=== PATIENT | female | born 1945 ===

== ENCOUNTER 2023-02-04 17:30 | Inpatient (IN) | payer OTHER, MEDICARE ==
[2023-02-04] MEDS ORDERED: ACETAMINOPHEN 325 MG TABLET (FP) PO ONE (18:16)
[2023-02-04] MEDS ORDERED: busPIRone HCL 5 MG TABLET PO ONE (18:30)
[2023-02-04] MEDS ORDERED: ACETAMINOPHEN 325 MG TABLET (FP) ONE (18:55)
[2023-02-04] MEDS ORDERED: busPIRone HCL 5 MG TABLET ONE (18:56)
[2023-02-04] MEDS ORDERED: SODIUM CHLORIDE 0.9% 1000 ML INFUS.BAG IV ONE (19:13)
[2023-02-04 19:29] LABS: EPI CELLS 3 /uL (0-25.1); HYALINE CASTS 0 /uL (0-3.1); PH,URINE 6.5 (5.0-8.0); URINE APPEARANCE CLEAR; URINE BACTERIA 1 /uL (0-1359); URINE BILIRUBIN NEGATIVE (NEGATIVE); URINE COLOR YELLOW; URINE GLUCOSE (UA) NEGATIVE (NEGATIVE); URINE KETONE TRACE (NEGATIVE); URINE LEUK ESTERASE 2+ (NEGATIVE); URINE NITRITE NEGATIVE (NEGATIVE); URINE PROTEIN TRACE (NEGATIVE); URINE RBC 21 /uL (0-23.9); URINE UROBILINOGEN 0.2 mg/dL (0.2-1.0); URINE WBC 13 /uL (0-25.8)
[2023-02-04 19:40] LABS: BASO % 0.3 % (0-2.0); HEMATOCRIT 38.5 % (32.4-45.2); HEMOGLOBIN 12.7 GM/dL (10.7-15.3); LYMPH % 6.6 % (8-40); MCH 30.2 pg (25.7-33.7); MEAN CELL VOLUME 91.5 fl (80-96); MEAN PLT VOLUME 7.6 fl (7.5-11.1); NEUT % 87.1 % (42.8-82.8); PLATELET COUNT 402 10^3/uL (134-434); RDW 15.2 % (11.6-15.6); WHITE BLOOD COUNT 17.9 K/mm3 (4.0-10.0)
[2023-02-04 20:20] LABS: POTASSIUM 3.5 mmol/L (3.5-5.1)
[2023-02-04 20:23] LABS: ALBUMIN 3.3 g/dl (3.4-5.0); CALCIUM 9.4 mg/dL (8.5-10.1)
[2023-02-04 20:27] LABS: CREATININE 0.6 mg/dL (0.55-1.3)
[2023-02-04 20:28] LABS: BILIRUBIN,TOTAL 1.1 mg/dL (0.2-1); TOT PROT 7.3 g/dl (6.4-8.2)
[2023-02-04] MEDS ORDERED: CEFTRIAXONE 1 GM/50 ML BAG ONE (22:12)
[2023-02-04] MEDS: CEFUROXIME AXETIL 250 MG TABLET PO SCH ×2 (23:07→23:54)
[2023-02-04] MEDS ORDERED: MELATONIN 5 MG TABLETS PO ONE (23:44)
[2023-02-05] MEDS ORDERED: ACETAMINOPHEN 325 MG TABLET (FP) ONE (02:25)
[2023-02-05] MEDS: ACETAMINOPHEN 325 MG TABLET (FP) PO PRN ×2 (02:29→21:48)
[2023-02-05] MEDS ORDERED: busPIRone HCL 5 MG TABLET ONE (05:08)
[2023-02-05] MEDS: busPIRone HCL 5 MG TABLET PO SCH ×2 (05:08→21:48)
[2023-02-05] MEDS ORDERED: PANTOPRAZOLE 20 MG TABLET PO ONE (05:43)
[2023-02-05] MEDS: PANTOPRAZOLE 20 MG TABLET PO SCH (06:11)
[2023-02-05 06:27] LABS: BASO % 0.5 % (0-2.0); EOS % 1.6 % (0-4.5); HEMATOCRIT 32.7 % (32.4-45.2); HEMOGLOBIN 10.8 GM/dL (10.7-15.3); LYMPH % 8.2 % (8-40); MCH 30.4 pg (25.7-33.7); MCHC 32.9 g/dl (32.0-36.0); MEAN CELL VOLUME 92.5 fl (80-96); MEAN PLT VOLUME 7.7 fl (7.5-11.1); MONO % 4.7 % (3.8-10.2); PLATELET COUNT 330 10^3/uL (134-434); RBC 3.54 M/mm3 (3.60-5.2); RDW 14.7 % (11.6-15.6); WHITE BLOOD COUNT 16.1 K/mm3 (4.0-10.0)
[2023-02-05 06:51] LABS: POTASSIUM 3.4 mmol/L (3.5-5.1)
[2023-02-05 06:55] LABS: ALBUMIN 2.7 g/dl (3.4-5.0); CALCIUM 8.7 mg/dL (8.5-10.1); MAGNESIUM 1.9 mg/dL (1.8-2.4)
[2023-02-05 06:56] LABS: BLOOD UREA NITROGEN 21.6 mg/dL (7-18)
[2023-02-05 06:58] LABS: BILIRUBIN,TOTAL 0.8 mg/dL (0.2-1); PHOSPHOROUS 2.7 mg/dL (2.5-4.9)
[2023-02-05 06:59] LABS: CREATININE 0.4 mg/dL (0.55-1.3)
[2023-02-05 07:01] LABS: TOT PROT 6.1 g/dl (6.4-8.2)
[2023-02-05] MEDS: DORZOLAMIDE 2% HCL OPHTHALMIC SOLUTION 10 ML BOTTLE OU SCH ×2 (10:23→21:48)
[2023-02-05] MEDS: CEFUROXIME AXETIL 250 MG TABLET PO SCH ×2 (10:23→22:29)
[2023-02-05] MEDS ORDERED: POTASSIUM CHLORIDE TABS 20 MEQ TABLET.ER (FP) PO ONE ×2 (11:07→11:41)
[2023-02-05] MEDS ORDERED: TAMSULOSIN HCL 0.4 MG CAP ONE (11:41)
[2023-02-05] MEDS ORDERED: ENOXAPARIN NA (PORCINE) 40 MG/0.4 ML DISP.SYRIN SQ ONE (11:41)
[2023-02-05] MEDS: TAMSULOSIN HCL 0.4 MG CAP PO SCH (11:52)
[2023-02-05] MEDS: ENOXAPARIN NA (PORCINE) 40 MG/0.4 ML DISP.SYRIN SQ SCH (11:53)
[2023-02-05] MEDS: LATANOPROST 0.005% OPHTH SOLN 2.5ML BOTTLE OU SCH (21:48)
[2023-02-06] MEDS: busPIRone HCL 5 MG TABLET PO SCH ×3 (05:23→21:34)
[2023-02-06] MEDS: PANTOPRAZOLE 20 MG TABLET PO SCH (06:06)
[2023-02-06] MEDS: TAMSULOSIN HCL 0.4 MG CAP PO SCH (08:24)
[2023-02-06 09:27] LABS: BASO % 0.4 % (0-2.0); EOS % 1.2 % (0-4.5); HEMATOCRIT 30.7 % (32.4-45.2); LYMPH % 7.4 % (8-40); MCHC 32.5 g/dl (32.0-36.0); MEAN CELL VOLUME 92.2 fl (80-96); MEAN PLT VOLUME 7.8 fl (7.5-11.1); MONO % 5.1 % (3.8-10.2); NEUT % 85.9 % (42.8-82.8); PLATELET COUNT 337 10^3/uL (134-434); RBC 3.33 M/mm3 (3.60-5.2); RDW 14.8 % (11.6-15.6); WHITE BLOOD COUNT 13.8 K/mm3 (4.0-10.0)
[2023-02-06] MEDS: CEFUROXIME AXETIL 250 MG TABLET PO SCH ×2 (09:41→21:34)
[2023-02-06] MEDS: ENOXAPARIN NA (PORCINE) 40 MG/0.4 ML DISP.SYRIN SQ SCH (09:41)
[2023-02-06] MEDS: DORZOLAMIDE 2% HCL OPHTHALMIC SOLUTION 10 ML BOTTLE OU SCH ×2 (09:42→21:34)
[2023-02-06 10:06] LABS: POTASSIUM 3.8 mmol/L (3.5-5.1)
[2023-02-06 10:09] LABS: BLOOD UREA NITROGEN 15.9 mg/dL (7-18)
[2023-02-06 10:10] LABS: MAGNESIUM 1.9 mg/dL (1.8-2.4)
[2023-02-06 10:11] LABS: CALCIUM 8.6 mg/dL (8.5-10.1)
[2023-02-06 10:13] LABS: CREATININE 0.4 mg/dL (0.55-1.3)
[2023-02-06] MEDS: ACETAMINOPHEN 325 MG TABLET (FP) PO PRN (15:23)
[2023-02-06] MEDS: LATANOPROST 0.005% OPHTH SOLN 2.5ML BOTTLE OU SCH (21:34)
[2023-02-07] MEDS: PANTOPRAZOLE 20 MG TABLET PO SCH (06:08)
[2023-02-07] MEDS: busPIRone HCL 5 MG TABLET PO SCH ×4 (06:08→21:26)
[2023-02-07 10:21] LABS: BASO % 0.3 % (0-2.0); EOS % 0.9 % (0-4.5); HEMATOCRIT 32.2 % (32.4-45.2); HEMOGLOBIN 10.5 GM/dL (10.7-15.3); LYMPH % 6.9 % (8-40); MCH 30.1 pg (25.7-33.7); MCHC 32.5 g/dl (32.0-36.0); MEAN CELL VOLUME 92.4 fl (80-96); MEAN PLT VOLUME 7.6 fl (7.5-11.1); MONO % 5.4 % (3.8-10.2); NEUT % 86.5 % (42.8-82.8); PLATELET COUNT 355 10^3/uL (134-434); RBC 3.49 M/mm3 (3.60-5.2); RDW 14.3 % (11.6-15.6); WHITE BLOOD COUNT 17.8 K/mm3 (4.0-10.0)
[2023-02-07 10:44] LABS: POTASSIUM 3.4 mmol/L (3.5-5.1)
[2023-02-07 10:49] LABS: ALBUMIN 2.8 g/dl (3.4-5.0); BLOOD UREA NITROGEN 12.7 mg/dL (7-18); CALCIUM 9.1 mg/dL (8.5-10.1)
[2023-02-07 10:52] LABS: CREATININE 0.3 mg/dL (0.55-1.3)
[2023-02-07 10:54] LABS: BILIRUBIN,TOTAL 0.8 mg/dL (0.2-1); TOT PROT 6.4 g/dl (6.4-8.2)
[2023-02-07] MEDS: MULTIVITAMINS (DAILY MVI) TABLET (FP) PO SCH (11:25)
[2023-02-07] MEDS: TAMSULOSIN HCL 0.4 MG CAP PO SCH (11:25)
[2023-02-07] MEDS: ENOXAPARIN NA (PORCINE) 40 MG/0.4 ML DISP.SYRIN SQ SCH (11:25)
[2023-02-07] MEDS: CEFUROXIME AXETIL 250 MG TABLET PO SCH ×2 (11:26→21:26)
[2023-02-07] MEDS: DORZOLAMIDE 2% HCL OPHTHALMIC SOLUTION 10 ML BOTTLE OU SCH ×2 (11:27→21:34)
[2023-02-07] MEDS: MAG HYDROX/AL HYDROX/SIMETH 30 ML UNIT-DOSE CUP PO SCH (16:39)
[2023-02-07] MEDS: LATANOPROST 0.005% OPHTH SOLN 2.5ML BOTTLE OU SCH (21:28)
[2023-02-08] MEDS: busPIRone HCL 5 MG TABLET PO SCH ×3 (05:48→22:44)
[2023-02-08] MEDS: MAG HYDROX/AL HYDROX/SIMETH 30 ML UNIT-DOSE CUP PO SCH ×4 (05:49→17:46)
[2023-02-08] MEDS: PANTOPRAZOLE 20 MG TABLET PO SCH (06:32)
[2023-02-08] MEDS: TAMSULOSIN HCL 0.4 MG CAP PO SCH (08:07)
[2023-02-08 10:12] LABS: HEMATOCRIT 33.5 % (32.4-45.2); HEMOGLOBIN 10.8 GM/dL (10.7-15.3); MCH 29.5 pg (25.7-33.7); MCHC 32.1 g/dl (32.0-36.0); MEAN CELL VOLUME 91.9 fl (80-96); MEAN PLT VOLUME 7.9 fl (7.5-11.1); PLATELET COUNT 384 10^3/uL (134-434); RBC 3.64 M/mm3 (3.60-5.2); RDW 14.4 % (11.6-15.6); WHITE BLOOD COUNT 14.4 K/mm3 (4.0-10.0)
[2023-02-08 10:39] LABS: POTASSIUM 3.6 mmol/L (3.5-5.1)
[2023-02-08 10:42] LABS: ALBUMIN 2.5 g/dl (3.4-5.0); CALCIUM 8.9 mg/dL (8.5-10.1)
[2023-02-08 10:43] LABS: BLOOD UREA NITROGEN 11.8 mg/dL (7-18)
[2023-02-08 10:46] LABS: CREATININE 0.4 mg/dL (0.55-1.3)
[2023-02-08] MEDS: ESCITALOPRAM OXALATE 10 MG TABLET PO SCH (10:47)
[2023-02-08] MEDS: ENOXAPARIN NA (PORCINE) 40 MG/0.4 ML DISP.SYRIN SQ SCH (10:47)
[2023-02-08] MEDS: MULTIVITAMINS (DAILY MVI) TABLET (FP) PO SCH (10:47)
[2023-02-08 10:48] LABS: BILIRUBIN,TOTAL 0.6 mg/dL (0.2-1); TOT PROT 5.9 g/dl (6.4-8.2)
[2023-02-08] MEDS: CEFUROXIME AXETIL 250 MG TABLET PO SCH ×2 (10:48→22:44)
[2023-02-08] MEDS: DORZOLAMIDE 2% HCL OPHTHALMIC SOLUTION 10 ML BOTTLE OU SCH ×2 (10:49→22:46)
[2023-02-08] MEDS: ACETAMINOPHEN 325 MG TABLET (FP) PO PRN (13:58)
[2023-02-08] MEDS: LATANOPROST 0.005% OPHTH SOLN 2.5ML BOTTLE OU SCH (22:46)
[2023-02-09] MEDS: MAG HYDROX/AL HYDROX/SIMETH 30 ML UNIT-DOSE CUP PO SCH ×4 (01:21→17:30)
[2023-02-09] MEDS: PANTOPRAZOLE 20 MG TABLET PO SCH (06:39)
[2023-02-09] MEDS: busPIRone HCL 5 MG TABLET PO SCH ×3 (06:39→22:14)
[2023-02-09 09:42] LABS: HEMATOCRIT 30.8 % (32.4-45.2); HEMOGLOBIN 10.3 GM/dL (10.7-15.3); MCH 30.2 pg (25.7-33.7); MCHC 33.4 g/dl (32.0-36.0); MEAN CELL VOLUME 90.4 fl (80-96); MEAN PLT VOLUME 7.9 fl (7.5-11.1); PLATELET COUNT 407 10^3/uL (134-434); RBC 3.41 M/mm3 (3.60-5.2)
[2023-02-09 09:44] LABS: CHLORIDE 106 mmol/L (98-107); POTASSIUM 3.3 mmol/L (3.5-5.1); SODIUM 142 mmol/L (136-145)
[2023-02-09 09:46] LABS: ANION GAP 7 MMOL/L (8-16); BLOOD UREA NITROGEN 11.5 mg/dL (7-18); CALCIUM 8.6 mg/dL (8.5-10.1); CO2 28 mmol/L (21-32); GLUCOSE,RANDOM 91 mg/dL (74-106)
[2023-02-09 09:50] LABS: CREATININE < 0.2 mg/dL (0.55-1.3)
[2023-02-09] MEDS: CEFUROXIME AXETIL 250 MG TABLET PO SCH ×2 (10:37→22:16)
[2023-02-09] MEDS: MULTIVITAMINS (DAILY MVI) TABLET (FP) PO SCH (10:38)
[2023-02-09] MEDS: ESCITALOPRAM OXALATE 10 MG TABLET PO SCH (10:38)
[2023-02-09] MEDS: TAMSULOSIN HCL 0.4 MG CAP PO SCH (10:38)
[2023-02-09] MEDS: ENOXAPARIN NA (PORCINE) 40 MG/0.4 ML DISP.SYRIN SQ SCH (10:38)
[2023-02-09] MEDS: LACTOBACILLUS ACIDOPHILUS 1 TABLET PO SCH (10:38)
[2023-02-09] MEDS: DORZOLAMIDE 2% HCL OPHTHALMIC SOLUTION 10 ML BOTTLE OU SCH ×3 (10:39→22:21)
[2023-02-09] MEDS ORDERED: POTASSIUM CHLORIDE ORAL LIQUID 20 MEQ/15 ML PO ONE (11:11)
[2023-02-09 21:07] VITALS: RESP 18
[2023-02-09] MEDS: LATANOPROST 0.005% OPHTH SOLN 2.5ML BOTTLE OU SCH (22:15)
[2023-02-09] MEDS: ACETAMINOPHEN 325 MG TABLET (FP) PO PRN (23:11)
[2023-02-10] MEDS: MAG HYDROX/AL HYDROX/SIMETH 30 ML UNIT-DOSE CUP PO SCH ×3 (02:43→13:06)
[2023-02-10] MEDS: busPIRone HCL 5 MG TABLET PO SCH ×3 (06:18→22:16)
[2023-02-10] MEDS: PANTOPRAZOLE 20 MG TABLET PO SCH (06:18)
[2023-02-10] MEDS: ENOXAPARIN NA (PORCINE) 40 MG/0.4 ML DISP.SYRIN SQ SCH ×2 (11:44→12:25)
[2023-02-10] MEDS: ACETAMINOPHEN 325 MG TABLET (FP) PO PRN (11:44)
[2023-02-10] MEDS: CEFUROXIME AXETIL 250 MG TABLET PO SCH (11:45)
[2023-02-10] MEDS: ESCITALOPRAM OXALATE 10 MG TABLET PO SCH ×2 (11:45→12:24)
[2023-02-10] MEDS: MULTIVITAMINS (DAILY MVI) TABLET (FP) PO SCH ×2 (11:45→12:25)
[2023-02-10] MEDS: TAMSULOSIN HCL 0.4 MG CAP PO SCH ×2 (11:45→12:24)
[2023-02-10] MEDS: LACTOBACILLUS ACIDOPHILUS 1 TABLET PO SCH ×2 (11:45→12:24)
[2023-02-10] MEDS: DORZOLAMIDE 2% HCL OPHTHALMIC SOLUTION 10 ML BOTTLE OU SCH ×3 (11:46→22:18)
[2023-02-10] MEDS: AMINO ACIDS/PROTEIN HYDROLYS 30 ML LIQUID.PKT PO SCH (14:16)
[2023-02-10] MEDS: LATANOPROST 0.005% OPHTH SOLN 2.5ML BOTTLE OU SCH (22:18)
[2023-02-11] MEDS: MAG HYDROX/AL HYDROX/SIMETH 30 ML UNIT-DOSE CUP PO SCH ×6 (00:40→17:56)
[2023-02-11] MEDS: AMINO ACIDS/PROTEIN HYDROLYS 30 ML LIQUID.PKT PO SCH ×3 (02:29→17:56)
[2023-02-11] MEDS: busPIRone HCL 5 MG TABLET PO SCH ×2 (06:19→13:48)
[2023-02-11] MEDS: PANTOPRAZOLE 20 MG TABLET PO SCH (06:19)
[2023-02-11] MEDS: TAMSULOSIN HCL 0.4 MG CAP PO SCH (08:17)
[2023-02-11] MEDS: ENOXAPARIN NA (PORCINE) 40 MG/0.4 ML DISP.SYRIN SQ SCH (10:13)
[2023-02-11] MEDS: MULTIVITAMINS (DAILY MVI) TABLET (FP) PO SCH (10:14)
[2023-02-11] MEDS: LACTOBACILLUS ACIDOPHILUS 1 TABLET PO SCH (10:14)
[2023-02-11] MEDS: ESCITALOPRAM OXALATE 10 MG TABLET PO SCH (10:14)
[2023-02-11] MEDS: DORZOLAMIDE 2% HCL OPHTHALMIC SOLUTION 10 ML BOTTLE OU SCH (10:23)
[2023-02-11 10:40] LABS: BASO % 0.4 % (0-2.0); EOS % 1.7 % (0-4.5); HEMATOCRIT 33.5 % (32.4-45.2); HEMOGLOBIN 11.4 GM/dL (10.7-15.3); LYMPH % 11.4 % (8-40); MCH 30.3 pg (25.7-33.7); MCHC 33.9 g/dl (32.0-36.0); MEAN CELL VOLUME 89.1 fl (80-96); MEAN PLT VOLUME 7.5 fl (7.5-11.1); MONO % 6.9 % (3.8-10.2); NEUT % 79.6 % (42.8-82.8); PLATELET COUNT 525 10^3/uL (134-434); RBC 3.76 M/mm3 (3.60-5.2); RDW 14.8 % (11.6-15.6); WHITE BLOOD COUNT 9.2 K/mm3 (4.0-10.0)
[2023-02-11 11:03] LABS: POTASSIUM 3.9 mmol/L (3.5-5.1)
[2023-02-11 11:08] LABS: BLOOD UREA NITROGEN 16.1 mg/dL (7-18)
[2023-02-11 11:09] LABS: CALCIUM 9.1 mg/dL (8.5-10.1); MAGNESIUM 2.3 mg/dL (1.8-2.4)
[2023-02-11 11:11] LABS: CREATININE 0.4 mg/dL (0.55-1.3); PHOSPHOROUS 3.4 mg/dL (2.5-4.9)
[2023-02-11 16:41] VITALS: BP 112/73; PULSE 88; TEMP 98.4
== END 2023-02-11 20:10 | DRG 690 ==
LOC: JER 17:30 → JERBED 21:16 → OBSVTOIN 02-05 14:17 → J5S 02-05 16:18
PROVIDERS: ADMIT Internal Medicine; ATTEND Internal Medicine
DX: N39.0 Urinary tract infection, site not specified (principal); R26.81 Unsteadiness on feet; R33.9 Retention of urine, unspecified; H40.9 Unspecified glaucoma; E87.6 Hypokalemia; F41.8 Other specified anxiety disorders; K21.9 Gastro-esophageal reflux disease without esophagitis
CPT/HCPCS: 36415; 71045-TC-FY; 76856-TC; 80048; 80053; 81003; 82962; 83735; 84100; 84443; 85025; 85027; 87086; 87635; 93005; 93010; 97116-GP; 97161-GP; 99285-25; G0378